=== PATIENT | male | born 1985 | race Caucasian/White ===

== ENCOUNTER 2017-05-08 18:54 | Emergency (ER) | payer SELFPAY ==
[~2017-05-08] VITALS: Ht 190.5 cm; Wt 138.6 kg
[~2017-05-08 18:54] MED LIST: CEPHALEXIN500 MG OR; NO MEDS; ULTRAM50 M1 PO
[2017-05-08 20:26] LABS: HEMOGLOBIN 15.3 g/dl (14.0-18.0); IMMATURE GRANULOCYTES 0.4 % (0.0-1.0); MEAN CELL VOLUME 92.1 fL CALC (80.0-100.0); MEAN CORPUSCULAR HGB CONC 34.8 g/L CALC (32.0-36.0); NEUT# 4.26 thou/uL (1.82-7.42); RED BLOOD COUNT 4.78 mill/uL (4.70-6.10); RED CELL DISTRI WIDTH 11.9 % (11.5-15.5)
[2017-05-08 20:33] LABS: ALKALINE PHOSPHATASE 49 u/l (38-126); ANION GAP 18 (6-22 (CALC)); BILIRUBIN, TOTAL 0.6 mg/dL (0.0-1.4); BUN 15 mg/dL (9-20); BUN/CREATININE RATIO 14 (12-20 (CALC)); CALCIUM 9.9 mg/dL (8.4-10.2); CARBON DIOXIDE 26 mmol/l (22-30); CHLORIDE 105 mmol/l (95-108); CREATININE 1.1 mg/dL (0.7-1.3); GFR > 60 ML/MIN (>=60 (CALC)); GFR FOR AFR.AMER. > 60 ML/MIN (>=60 (CALC)); GLUCOSE 113 mg/dL (75-110); POTASSIUM 3.7 mmol/l (3.5-5.1); SGOT/AST 37 u/l (17-59); SGPT/ALT 65 u/l (21-72); SODIUM 145 mmol/l (137-146); TOTAL PROTEIN 8.2 g/dL (6.3-8.2)
[2017-05-08] MEDS ORDERED: SEPTRA4001 PO (21:40)
[2017-05-08] MEDS ORDERED: AUGMENTIN875TAB PO (21:40)
[2017-05-08] MEDS ORDERED: LOTRISONE CREAM15 GM EX (21:41)
[2017-05-08 23:10] VITALS: BP 140/84
== END 2017-05-08 23:10 | disposition home or self-care (01) | DRG 603 ==
LOC: ED 18:54
PROVIDERS: Emergency Medicine
DX: L03.114 Cellulitis of left upper limb (principal); B96.89 Other specified bacterial agents as the cause of diseases classified elsewhere; B35.3 Tinea pedis; S60.862A Insect bite (nonvenomous) of left wrist, initial encounter

== ENCOUNTER 2017-11-23 01:41 | Emergency (ER) | payer SELFPAY ==
[~2017-11-23] VITALS: Ht 190.5 cm; Wt 141.0 kg
[~2017-11-23 01:41] MED LIST changes: +AUGMENTIN875TAB PO; +LOTRISONE CREAM15 GM EX; +SEPTRA4001 PO
[2017-11-23 03:00] VITALS: BP 148/77
[2017-11-23] MEDS ORDERED: ORPHENADRINE100 MG PO (03:05)
[2017-11-23] MEDS ORDERED: IBUPROFEN600 MG PO (03:05)
[2017-11-23] MEDS ORDERED: Levaquin PO (03:05)
== END 2017-11-23 03:20 | disposition home or self-care (01) | DRG 552 ==
LOC: ED 01:41
DX: S23.3XXA Sprain of ligaments of thoracic spine, initial encounter (principal); F17.210 Nicotine dependence, cigarettes, uncomplicated; W01.0XXA Fall on same level from slipping, tripping and stumbling without subsequent striking against object, initial encounter; Y93.E1 Activity, personal bathing and showering; Y92.002 Bathroom of unspecified non-institutional (private) residence as the place of occurrence of the external cause